=== PATIENT | male | born 1955 | race Caucasian/White ===

== ENCOUNTER → 2019-04-18 15:18 | Outpatient (CLI) | payer OTHER, SELFPAY ==
--- NOTE | 2019-04-18 | DI.RAD.S_ITS ---
PROCEDURE: XR LUMBAR SPINE 2-3V INDICATIONS: Left-sided sciatica TECHNIQUE: 3 views of the lumbar spine were acquired. COMPARISON: None. FINDINGS: Bones: No fracture or focal osseous destruction. Multilevel degenerative endplate sclerosis and spurring. Diffuse facet arthropathy. Moderate to severe diffuse narrowing of lumbar disc spaces, mild at L1-L2. Straightening of the normal lordotic curvature. Levoscoliosis noted. Bilateral SI joint sclerosis and spurring. Subcentimeter sclerotic focus projecting at L4 vertebral body Soft tissues: Overlying bowel gas pattern is normal. No suspicious soft tissue calcifications. IMPRESSION: Diffuse moderate-severe lumbar spondylosis and facet arthropathy. Levoscoliosis. Nonspecific sclerotic focus projecting in the L4 vertebral body. Dictated by: Kulwinder Evans M.D. on 04/18/2019 at 17:38 Approved by: Kulwinder Evans M.D. on 04/18/2019 at 17:39
== END ==
PROVIDERS: PCP Internal Medicine; Referring Provider Internal Medicine; Visit Provider Internal Medicine
DX: Z00.00 Encounter for general adult medical examination without abnormal findings (principal); M54.32 Sciatica, left side; M47.816 Spondylosis without myelopathy or radiculopathy, lumbar region; M41.9 Scoliosis, unspecified
CPT/HCPCS: 72100; 80061; 84153

== ENCOUNTER → 2019-04-18 18:46 | Outpatient (ROUT) | payer OTHER, SELFPAY ==
[2019-04-18 19:37] LABS: Cholesterol 202 mg/dL (140-199); HDL Cholesterol 107 mg/dL (40-60); LDL Cholesterol Calculated 73 mg/dL (<100); Triglycerides 108 mg/dL (35-150)
[2019-04-18 20:08] LABS: Prostate Specific Antigen 0.976 ng/mL (0.10-4.00)
== END ==
PROVIDERS: PCP Internal Medicine; Visit Provider Internal Medicine
DX: Z00.00 Encounter for general adult medical examination without abnormal findings (principal)
CPT/HCPCS: 80061; 84153

== ENCOUNTER → 2019-05-01 13:27 | Outpatient (CLI) | payer OTHER, SELFPAY ==
--- NOTE | 2019-05-01 | DI.MRI.S_ITS ---
PROCEDURE: MR LUMBAR SPINE WO CON INDICATIONS: Sciatica, left side TECHNIQUE: Noncontrast sagittal T1 spin echo and T2 fast echo, sagittal STIR, axial T1 and T2 fast spin echo through the lumbar spine. In cases with scoliosis, additional coronal T2 fast spin echo may be performed. COMPARISON: [facility], CR, XR LUMBAR SPINE 2-3V, 04/18/2019, 15:38. FINDINGS: Image quality: Excellent. Alignment and Curvature: Mild to moderate levoconvex scoliotic curvature is noted. Bone Marrow: Marrow is of normal overall signal. Scattered foci are seen, which are hyperintense on T1-weighted and T2-weighted imaging, which are most consistent with benign vertebral body hemangiomas. No acute vertebral body compression fractures. Spinal Cord: Conus medullaris terminates at the T12-L1 level. Visualized cord demonstrates normal signal and size. Paraspinous Soft Tissues: No paravertebral masses. T12-L1: No significant abnormality is seen. L1-L2: The disc height and disc signal are relatively well-preserved. Mild generalized disc bulge is seen. Mild facet joint hypertrophy is seen. Mild bilateral neural foraminal narrowing is seen. No significant central canal narrowing seen. L2-L3: Mild to moderate loss of disc height disc signal can be seen. Moderate disc bulge is seen, with a central/left disc extrusion, with inferior migration of disc material. There is a prominent disc material seen posterior to the L3 vertebral body, as on series 2 image 9. Mild to moderate facet hypertrophy is seen. There is mild to moderate left-sided and moderate right-sided neural foraminal narrowing seen. Moderate central canal narrowing is seen. L3-L4: Moderate loss of disc height is seen. Loss of disc signal is seen. Moderate disc bulge is seen, which is eccentric to the right. Mild to moderate facet hypertrophy is seen. There is at least moderate bilateral neural foraminal narrowing seen, right worse than left. There is a degree of compression seen upon the exiting nerve roots. Moderate central canal narrowing is seen. L4-L5: At least moderate loss of disc height and disc signal can be seen. Moderate disc bulge seen, which is eccentric to the left. Mild to moderate facet hypertrophy is seen. There is moderate right-sided and moderate to severe left-sided neural foraminal narrowing seen. There is a mild degree of compression seen upon the exiting L4 nerve roots, left worse than right. Mild central canal narrowing is seen. L5-S1: At least moderate loss of disc height and disc signal can be seen. Moderate disc bulge is seen, which is eccentric to the left. There is moderate left-sided and minimal right-sided neural foraminal narrowing seen. An annular fissure can be seen posteriorly, as on series 3 image 6. Mild central canal narrowing is seen. IMPRESSION: Levoconvex scoliosis and multiple levels of degenerative change are seen. At L2-L3, there is a prominent disc extrusion, with inferior migration of disc material, with a prominent amount of disc material posterior to the L3 vertebral body. There is an annular fissure seen at L5-S1. Dictated by: Tommie Briggs M.D. on 05/01/2019 at 15:45 Approved by: Tommie Briggs M.D. on 05/01/2019 at 15:51
== END ==
PROVIDERS: PCP Internal Medicine; Referring Provider Internal Medicine; Visit Provider Internal Medicine
DX: M54.5 Low back pain (principal); M54.32 Sciatica, left side; M41.86 Other forms of scoliosis, lumbar region; M47.816 Spondylosis without myelopathy or radiculopathy, lumbar region; M47.817 Spondylosis without myelopathy or radiculopathy, lumbosacral region; M48.061 Spinal stenosis, lumbar region without neurogenic claudication; M48.07 Spinal stenosis, lumbosacral region
CPT/HCPCS: 72148

== ENCOUNTER → 2021-11-12 12:14 | Outpatient (CLI) | payer MEDICARE, OTHER, SELFPAY ==
[2021-11-12 14:33] LABS: Hematocrit 45.2 % (41-53); Hemoglobin 15.3 g/dL (13.5-17.5); Mean Corpuscular HGB Conc 33.8 % (30-36); Mean Corpuscular Hemoglobin 33.9 PG (26-34); Mean Corpuscular Volume 100.4 fL (80-100); Platelet Count 205 X10^3/uL (150-400); Red Cell Distribution Width 14.4 % (11.6-14.8); White Blood Cell Count 5.9 X10^3/uL (4.5-11.0)
[2021-11-12 14:40] LABS: Alanine Aminotransferase 18 IU/L (<50); Albumin 4.4 g/dL (3.5-5.0); Albumin Globulin Ratio 1.3 (1.0-2.8); Alkaline Phosphatase 67 U/L (38-126); Aspartate Aminotransferase 30 IU/L (17-59); BUN Creatinine Ratio 15.2 (6-22); Bilirubin Total 1.1 mg/dL (0.2-1.3); Blood Urea Nitrogen 12 mg/dL (9-20); Calcium 9.6 mg/dL (8.4-10.2); Carbon Dioxide 29 mmol/L (22-32); Chloride 99 mmol/L (98-107); Cholesterol 202 mg/dL (140-199); Estimated Glomerular Filt Rate > 60 mL/min (>60); Globulin 3.4 g/dL (1.7-4.1); Glucose 91 mg/dL (80-110); HDL Cholesterol 100 mg/dL (40-60); HEMOLYSIS < 15 (0-50); LDL Cholesterol Calculated 92 mg/dL (<100); Lipase 132 U/L (23-300); Potassium 4.1 mmol/L (3.4-5.1); Sodium 138 mmol/L (137-145); Total Protein 7.8 g/dL (6.3-8.2); Triglycerides 48 mg/dL (35-150)
[2021-11-12 15:08] LABS: Prostate Specific Antigen 1.46 ng/mL (0.10-4.00)
[2021-11-12 15:27] LABS: Vitamin B12 271 pg/mL (239-931)
== END ==
PROVIDERS: PCP Internal Medicine; Referring Provider Internal Medicine; Visit Provider Internal Medicine
DX: E53.8 Deficiency of other specified B group vitamins (principal); E78.2 Mixed hyperlipidemia; N40.0 Benign prostatic hyperplasia without lower urinary tract symptoms; R10.9 Unspecified abdominal pain
CPT/HCPCS: 36415; 80053; 80061; 82607; 83690; 84153; 84443; 85027

== ENCOUNTER → 2023-02-21 16:21 | Outpatient (CLI) | payer MEDICARE, OTHER, SELFPAY ==
[2023-02-21 17:18] LABS: Hematocrit 45.5 % (41-53); Hemoglobin 15.4 g/dL (13.5-17.5); Mean Corpuscular HGB Conc 33.8 % (30-36); Mean Corpuscular Hemoglobin 33.6 PG (26-34); Mean Corpuscular Volume 99.4 fL (80-100); Platelet Count 205 X10^3/uL (150-400); Red Blood Cell Count 4.58 X10^6/uL (4.5-5.9); Red Cell Distribution Width 14.2 % (11.6-14.8); White Blood Cell Count 7.3 X10^3/uL (4.5-11.0)
[2023-02-21 17:36] LABS: HEMOLYSIS < 15 (0-50)
[2023-02-21 17:41] LABS: Alanine Aminotransferase 34 IU/L (<50); Albumin 4.3 g/dL (3.5-5.0); Albumin Globulin Ratio 1.2 (1.0-2.8); Alkaline Phosphatase 67 U/L (38-126); Aspartate Aminotransferase 39 IU/L (17-59); Bilirubin Total 0.7 mg/dL (0.2-1.3); Blood Urea Nitrogen 15 mg/dL (9-20); Calcium 10.2 mg/dL (8.4-10.2); Carbon Dioxide 29 mmol/L (22-32); Chloride 100 mmol/L (98-107); Cholesterol 172 mg/dL (140-199); Estimated Glomerular Filt Rate > 60 mL/min (>60); Globulin 3.6 g/dL (1.7-4.1); Glucose 94 mg/dL (80-110); HDL Cholesterol 103 mg/dL (40-60); LDL Cholesterol Calculated 56 mg/dL (<100); Potassium 3.8 mmol/L (3.4-5.1); Sodium 138 mmol/L (137-145); Total Protein 7.9 g/dL (6.3-8.2); Triglycerides 64 mg/dL (35-150)
[2023-02-21 18:12] LABS: TSH w/ Reflex to FT4 2.82 uIU/mL (0.47-4.68)
[2023-02-21 21:23] LABS: Prostate Specific Antigen 1.17 ng/mL (0.10-4.00)
[2023-02-21 21:42] LABS: Vitamin B12 363 pg/mL (239-931)
== END ==
PROVIDERS: PCP Internal Medicine; Referring Provider Internal Medicine; Visit Provider Internal Medicine
DX: E53.8 Deficiency of other specified B group vitamins (principal); E78.2 Mixed hyperlipidemia; N40.1 Benign prostatic hyperplasia with lower urinary tract symptoms; K58.0 Irritable bowel syndrome with diarrhea; N13.8 Other obstructive and reflux uropathy
CPT/HCPCS: 36415; 80053; 80061; 82607; 84153; 84443; 85027

== ENCOUNTER → 2023-06-21 12:39 | Outpatient (CLI) | payer MEDICARE, OTHER, SELFPAY ==
--- NOTE | 2023-06-21 12:40 | DI.RAD.S_ITS ---
PROCEDURE: XR DEXA AXIAL SKELETON INDICATIONS: fracture, osteoporosis COMPARISON: None. FINDINGS: Lumbar Spine: L3-L4. Bone mineral density 1.239 g/cm2, T score 1.3. Left Hip: Bone mineral density 0.903 g/cm2, T score -0.3. Left Femoral Neck: Bone mineral density 0.745 g/cm2, T score -0.9. Right Hip: Bone mineral density 0.914 g/cm2, T score -0.2. Right Femoral Neck: Bone mineral density 0.723 g/cm2, T score -1.1. Fracture Risk Calculation (when applicable): 10-year fracture risk of a major osteoporotic fracture 10% and of a hip fracture 1.9%. (T score greater or equal to -1.0 to: NORMAL) (T score from -1.1 to -2.4: OSTEOPENIA) (T score less than or equal to -2.5: OSTEOPOROSIS) IMPRESSION: Osteopenia Dictated by: Rachid Perez M.D. on 06/23/2023 at 11:07 Approved by: Rachid Perez M.D. on 06/23/2023 at 11:09
== END ==
LOC: RAD 12:39
PROVIDERS: PCP Internal Medicine; Referring Provider Internal Medicine; Visit Provider Internal Medicine
DX: M85.89 Other specified disorders of bone density and structure, multiple sites (principal)
CPT/HCPCS: 77080

== ENCOUNTER → 2024-02-27 14:11 | Outpatient (CLI) | payer MEDICARE, OTHER, SELFPAY ==
[2024-02-27 14:34] LABS: Hemoglobin 15.5 g/dL (13.5-17.5); Mean Corpuscular HGB Conc 33.7 % (30-36); Mean Corpuscular Hemoglobin 34.3 PG (26-34); Mean Corpuscular Volume 101.7 fL (80-100); Platelet Count 213 X10^3/uL (150-400); Red Blood Cell Count 4.53 X10^6/uL (4.5-5.9); Red Cell Distribution Width 13.9 % (11.6-14.8); White Blood Cell Count 9.4 X10^3/uL (4.5-11.0)
[2024-02-27 14:56] LABS: Alanine Aminotransferase 27 IU/L (<50); Albumin 4.3 g/dL (3.5-5.0); Albumin Globulin Ratio 1.5 (1.0-2.8); Alkaline Phosphatase 74 U/L (38-126); Aspartate Aminotransferase 33 IU/L (17-59); BUN Creatinine Ratio 23.2 (6-22); Bilirubin Total 0.7 mg/dL (0.2-1.3); Blood Urea Nitrogen 23 mg/dL (9-20); Calcium 10.3 mg/dL (8.4-10.2); Carbon Dioxide 30 mmol/L (22-32); Chloride 100 mmol/L (98-107); Cholesterol 159 mg/dL (140-199); Estimated Glomerular Filt Rate > 60 mL/min (>60); Globulin 2.8 g/dL (1.7-4.1); Glucose 92 mg/dL (80-110); HDL Cholesterol 106 mg/dL (40-60); HEMOLYSIS < 15 (0-50); LDL Cholesterol Calculated 34 mg/dL (<100); Potassium 3.8 mmol/L (3.4-5.1); Sodium 136 mmol/L (137-145); Total Protein 7.1 g/dL (6.3-8.2); Triglycerides 94 mg/dL (35-150)
[2024-02-27 15:25] LABS: Prostate Specific Antigen 1.65 ng/mL (0.10-4.00)
[2024-02-27 15:44] LABS: Vitamin B12 408 pg/mL (239-931)
== END ==
LOC: LAB 14:15
PROVIDERS: PCP Internal Medicine; Referring Provider Internal Medicine; Visit Provider Internal Medicine
DX: E53.8 Deficiency of other specified B group vitamins (principal); E78.2 Mixed hyperlipidemia; N40.1 Benign prostatic hyperplasia with lower urinary tract symptoms; N13.8 Other obstructive and reflux uropathy
CPT/HCPCS: 36415; 80053; 80061; 82607; 84153; 85027

== ENCOUNTER → 2025-03-04 13:55 | Outpatient (CLI) | payer MEDICARE, OTHER, SELFPAY ==
[2025-03-04 14:38] LABS: Hematocrit 44.9 % (41-53); Hemoglobin 15.5 g/dL (13.5-17.5); Mean Corpuscular HGB Conc 34.5 % (30-36); Mean Corpuscular Hemoglobin 34.3 PG (26-34); Mean Corpuscular Volume 99.4 fL (80-100); Platelet Count 186 X10^3/uL (150-400)
[2025-03-04 14:58] LABS: Blood Urea Nitrogen 18 mg/dL (9-20); Calcium 9.9 mg/dL (8.4-10.2); Carbon Dioxide 30 mmol/L (22-32); Chloride 102 mmol/L (98-107); Cholesterol 174 mg/dL (140-199); Estimated Glomerular Filt Rate > 60 mL/min (>60); Glucose 98 mg/dL (70-99); HEMOLYSIS < 15 (0-50); Potassium 4.2 mmol/L (3.4-5.1); Sodium 137 mmol/L (137-145); Triglycerides 68 mg/dL (35-150)
[2025-03-04 15:08] LABS: HDL Cholesterol 118 mg/dL (40-60)
[2025-03-04 15:30] LABS: Prostate Specific Antigen 1.50 ng/mL (0.10-4.00)
[2025-03-04 15:47] LABS: TSH w/ Reflex to FT4 2.67 uIU/mL (0.47-4.68)
[2025-03-04 15:49] LABS: Vitamin B12 363 pg/mL (239-931)
== END ==
PROVIDERS: PCP Internal Medicine; Referring Provider Internal Medicine; Visit Provider Internal Medicine
DX: E78.2 Mixed hyperlipidemia (principal); N40.1 Benign prostatic hyperplasia with lower urinary tract symptoms; N13.8 Other obstructive and reflux uropathy; E53.8 Deficiency of other specified B group vitamins
CPT/HCPCS: 36415; 80048; 80061; 82607; 84153; 84443; 84450; 85027